=== PATIENT | female | born 1965 | race Caucasian/White ===

== ENCOUNTER 2016-12-14 06:02 | Day surgery (SDC) | payer OTHER ==
[~2016-12-14 06:02] MED LIST: ADVAIR 25028 BLISTE1 PO; ALBUTEROL17 GM INH; ALL DAY ENERGY; CIPRO XR500 MG PO; CODEINE; DOLACET 5/500 C1 CAP PO; EXCEDRIN MIGRA1 EAC3 PO; NORCO 7.5/3251 TAB PO; THERAGRAN-M PR1 EAC1 PO
[2016-12-14 07:01] LABS: ALBUMIN 3.7 g/dl (3.5-5.0); ALKALINE PHOSPHATASE 57 U/L (33-138); ALT/SGPT 23 U/L (12-78); ANION GAP 10 mmol/L (0-20); AST/SGOT 17 U/L (10-40); BILIRUBIN,TOTAL 0.4 mg/dl (0-1.5); BLOOD UREA NITROGEN 11 mg/dl (6-24); CALCIUM 8.7 mg/dl (8.5-10.5); CARBON DIOXIDE-VENOUS 25 mmol/L (22-32); CHLORIDE 112 mmol/l (96-110); CREATININE 0.75 mg/dl (0.50-1.10); GLUCOSE 115 mg/dL (70-110); POTASSIUM 3.9 mmol/L (3.7-5.1); SODIUM 143 mmol/L (135-145); eGFR VALUE FOR BLACK >90 mL/Min
[2016-12-14] MEDS ORDERED: PERCOCET 5-3251 EACH PO (20:40)
== END 2016-12-15 12:47 ==
LOC: WSU 06:02 → SHSA 06:07 → ORW 08:26 → PACU 09:42 → OBGF 11:00
PROVIDERS: Obstetrics & Gynecology
PROC: 0UT94ZZ Resection of Uterus, Percutaneous Endoscopic Approach (ICD-10-PCS; principal; 2016-12-14)
PROC: 0UTC4ZZ Resection of Cervix, Percutaneous Endoscopic Approach (ICD-10-PCS; 2016-12-14)
PROC: 0UT24ZZ Resection of Bilateral Ovaries, Percutaneous Endoscopic Approach (ICD-10-PCS; 2016-12-14)
PROC: 0UT74ZZ Resection of Bilateral Fallopian Tubes, Percutaneous Endoscopic Approach (ICD-10-PCS; 2016-12-14)
PROC: 8E0W4CZ Robotic Assisted Procedure of Trunk Region, Percutaneous Endoscopic Approach (ICD-10-PCS; 2016-12-14)
DX: C54.1 Malignant neoplasm of endometrium (principal); D25.1 Intramural leiomyoma of uterus; F41.9 Anxiety disorder, unspecified; F32.9 Major depressive disorder, single episode, unspecified; N26.9 Renal sclerosis, unspecified; J45.909 Unspecified asthma, uncomplicated; F17.210 Nicotine dependence, cigarettes, uncomplicated; Z79.899 Other long term (current) drug therapy; Z88.8 Allergy status to other drugs, medicaments and biological substances; Z87.442 Personal history of urinary calculi; Z98.890 Other specified postprocedural states
CPT/HCPCS: J0690; J1170; J7030; J7121

== ENCOUNTER 2017-01-04 00:19 | Emergency (ER) | payer OTHER ==
[~2017-01-04 00:19] MED LIST changes: +PERCOCET 5-3251 EACH PO
[2017-01-04] MEDS ORDERED: BACTRIM DS TAB1 EAC2 PO (00:37)
[2017-01-04] MEDS ORDERED: PREDNISONE20 M1 PO (00:58)
== END 2017-01-04 01:12 ==
LOC: EDMED 00:19
DX: L50.0 Allergic urticaria (principal); J45.909 Unspecified asthma, uncomplicated; Z87.442 Personal history of urinary calculi; Z90.710 Acquired absence of both cervix and uterus; Z98.890 Other specified postprocedural states
CPT/HCPCS: J7512